=== PATIENT | female | born 2000 | race Caucasian/White ===

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

== ENCOUNTER 2020-08-17 17:52 | Emergency (ER) | payer MEDICAID ==
[2020-08-17 17:58] VITALS: BP 108/71
--- NOTE | 2020-08-17 18:31 | Emergency Department Report ---
ED General Adult HPI - General Chief complaint: Laceration/Recheck/Suture Stated complaint: STITCHES REMOVAL Source: patient Mode of arrival: Ambulatory Limitations: No Limitations - History of Present Illness Initial comments: Patient is a 19-year-old female with no past medical history presents to the ED for sharan removal from a recent posterior scalp laceration that was stapled in the ED about a week ago. Patient states that it appears that the wound healed well and that she has not felt any localized pain. Patient states that she sustained the bleeding posterior scalp laceration after she missed a step at home and fell backward hitting her head against a concrete floor. Patient states that she came to this ED for evaluation soon after the accident occurred and had sharan applied to her laceration wound on the posterior scalp. Patient denies headache, dizziness, syncope, nausea, vomiting, change in vision, fever and chills, cough, neck pain, change in speech or syncope. MD Complaint: Sharan removal from a recent scalp laceration -: Sudden, week(s) (1) Location: head Radiation: non-radiation Severity scale (0 -10): 0 Improves with: none Worsens with: none Associated Symptoms: denies other symptoms. denies: confusion, chest pain, cough, diaphoresis, fever/chills, headaches, loss of appetite, malaise, nausea/vomiting, rash, shortness of breath, syncope Treatments Prior to Arrival: none - Related Data Home Medications Medication Instructions Recorded Confirmed Last Taken Ferrous Sulfate [Feosol] 325 mg PO QDAY 11/05/16 11/05/16 11/05/16 09:00 1 Vit-Fe Fumar-FA [ 1 tab PO QDAY 11/05/16 11/05/16 11/05/16 09:00 Vitamin] 1 Allergies Allergy/AdvReac Type Severity Reaction Status Date / Time Penicillins Allergy Rash Verified 08/17/20 17:53 ED Review of Systems ROS: Stated complaint: STITCHES REMOVAL Other details as noted in HPI Constitutional: denies: chills, fever Eyes: denies: eye pain, eye discharge, vision change ENT: denies: ear pain, throat pain Respiratory: denies: cough, shortness of breath, wheezing Cardiovascular: denies: chest pain, palpitations Endocrine: no symptoms reported Gastrointestinal: denies: abdominal pain, nausea, diarrhea Genitourinary: denies: urgency, dysuria, discharge Musculoskeletal: denies: back pain, joint swelling, arthralgia Skin: other (Healed staple wound on posterior scalp). denies: rash, lesions Neurological: denies: headache, weakness, paresthesias Psychiatric: denies: anxiety, depression Hematological/Lymphatic: denies: easy bleeding, easy bruising ED Past Medical Hx - Past Medical History Hx Hypertension: No Hx Congestive Heart Failure: No Hx Diabetes: No Hx Deep Vein Thrombosis: No Hx Renal Disease: No Hx Sickle Cell Disease: No Hx Seizures: No Hx Asthma: No Hx COPD: No Hx HIV: No - Social History Smoking Status: Never Smoker Substance Use Type: None - Medications Home Medications: Home Medications Medication Instructions Recorded Confirmed Last Taken Type Ferrous Sulfate [Feosol] 325 mg PO QDAY 11/05/16 11/05/16 11/05/16 09:00 History 1 Vit-Fe Fumar-FA [ 1 tab PO QDAY 11/05/16 11/05/16 11/05/16 09:00 History Vitamin] 1 ED Physical Exam - General Limitations: No Limitations General appearance: alert, in no apparent distress - Head Head exam: Present: other (Completely healed posterior scalp laceration wound with sharan in place) - Eye Eye exam: Present: normal appearance, PERRL, EOMI Pupils: Present: normal accommodation - ENT ENT exam: Present: normal exam, normal orophraynx, mucous membranes moist, TM's normal bilaterally, normal external ear exam - Neck Neck exam: Present: normal inspection, full ROM - Respiratory Respiratory exam: Present: normal lung sounds bilaterally. Absent: respiratory distress, wheezes, rales, stridor, chest wall tenderness, accessory muscle use, decreased breath sounds - Cardiovascular Cardiovascular Exam: Present: regular rate, normal rhythm, normal heart sounds. Absent: systolic murmur, diastolic murmur, rubs, gallop - GI/Abdominal GI/Abdominal exam: Present: soft, normal bowel sounds. Absent: tenderness, guarding, rebound, hyperactive bowel sounds, hypoactive bowel sounds, organomegaly - Extremities Exam Extremities exam: Present: normal inspection, full ROM, normal capillary refill - Back Exam Back exam: Present: normal inspection, full ROM. Absent: tenderness, CVA tenderness (R), CVA tenderness (L), muscle spasm, paraspinal tenderness - Neurological Exam Neurological exam: Present: alert, oriented X3, CN II-XII intact, normal gait, reflexes normal - Psychiatric Psychiatric exam: Present: normal affect, normal mood - Skin Skin exam: Present: warm, dry, intact, normal color, other (A well-healed occipital scalp laceration wound with sharan in place). Absent: rash ED Course Vital Signs 08/17/20 08/17/20 17:57 17:58 Temperature 97.8 F Pulse Rate 81 Respiratory 17 Rate Blood Pressure 108/71 O2 Sat by Pulse 100 Oximetry ED Medical Decision Making - Medical Decision Making This is a 19-year-old female with no past medical history presents to the ED for sharan removal from a recent posterior scalp laceration that was stapled in the ED about a week ago. Patient states that it appears that the wound healed well and that she has not felt any localized pain. Patient states that she sustained the bleeding posterior scalp laceration after she missed a step at home and fell backward hitting her head against a concrete floor. Patient states that she came to this ED for evaluation soon after the accident occurred and had sharan applied to her laceration wound on the posterior scalp. Patient denies headache, dizziness, syncope, nausea, vomiting, change in vision, fever and chills, cough, neck pain, change in speech or syncope. In the ED, patient is alert and oriented x3 and is not in distress. Patient had the sharan removed successfully from the occipital scalp, a total of 3 sharan were successfully removed. The wound is completely closed and healed well. Patient was therefore discharged home and advised to follow-up with her primary care physician as needed. Patient was advised return to the ED immediately if symptoms get worse. - Differential Diagnosis Wound check; scalp laceration; staple removal Critical care attestation.: If time is entered above; I have spent that time in minutes in the direct care of this critically ill patient, excluding procedure time. ED Disposition Clinical Impression: Encounter for removal of sharan, Encounter for wound re-check Disposition: DC/TX-05 [facility]ILD [facility] Is pt being admited?: No Does the pt Need Aspirin: No Condition: Stable Additional Instructions: Follow-up with your primary care physician as needed. Return to the ED immediately if symptoms get worse. Referrals: [facility] [Provider Group] - as needed Time of Disposition: 18:31 Print Language: SLOVAK
== END 2020-08-17 18:46 | disposition designated cancer center or children's hospital (05) ==
LOC: ED 17:52
DX: S01.01XD Laceration without foreign body of scalp, subsequent encounter (principal); Z48.02 Encounter for removal of sutures; Z79.899 Other long term (current) drug therapy; Z88.0 Allergy status to penicillin; X58.XXXD Exposure to other specified factors, subsequent encounter
CPT/HCPCS: 99282

== ENCOUNTER 2021-03-06 14:24 | Outpatient (CLI) | payer MEDICAID ==
[2021-03-06 15:39] VITALS: BP 113/75
[2021-03-06 15:55] LABS: Bilirubin,Urine NEG (Negative); Blood,Urine NEG (Negative); Color,Urine Yellow (Yellow); Mucus,Urine FEW /HPF; Protein,Urine <15 mg/dL mg/dL (Negative); Urobilinogen,Urine < 2.0 mg/dL (<2.0)
[2021-03-06] MEDS ORDERED: LACTATED RINGERS 1,000 ML IV ONE (16:16)
--- NOTE | 2021-03-06 16:46 | Ultrasound Report ---
ULTRASOUND BIOPHYSICAL PROFILE INDICATION: decreased movements. COMPARISON: None available. FINDINGS: BREATHING MOVEMENT = 2 GROSS BODY MOVEMENT = 2 TONE = 2 QUALITATIVE AMNIOTIC FLUID VOLUME = 2 TOTAL BIOPHYSICAL SCORE = 02/11 AMNIOTIC FLUID INDEX (cm) = 10.5 PRESENTATION: Cephalic. HEART RATE (beats per minute): 159 IMPRESSION: 1. biophysical profile = 02/11 Signer Name: Roger Dasilva MD Signed: 03/06/2021 4:41 PM Workstation Name: [email or web address]
== END 2021-03-06 17:25 | disposition home or self-care (01) ==
LOC: TRG 14:24 → APU 14:25 → TRG 17:25
PROVIDERS: ATTEND Obstetrics & Gynecology
DX: O36.8130 Decreased fetal movements, third trimester, not applicable or unspecified (principal); Z3A.36 36 weeks gestation of pregnancy
CPT/HCPCS: 59025; 76815; 76819; 81001; 96360; 96361; J7120